=== PATIENT | female | born 1940 | race Caucasian/White ===

== ENCOUNTER 2021-08-25 06:49 | Emergency (ER) | payer MEDICARE, OTHER ==
[2021-08-25] MEDS ORDERED: Azithromycin 250 MG Tab PO ONE (07:29)
[2021-08-25] MEDS ORDERED: predniSONE 20 MG Tab PO ONE (07:29)
[2021-08-25 08:01] LABS: CORONAVIRUS COVID-19 NAA NEGATIVE (NEGATIVE)
--- NOTE | 2021-08-25 09:05 | EDM.PDOC ---
ED HPI GENERAL MEDICAL PROBLEM - General Chief Complaint: Respiratory Problem Stated Complaint: cough fever Time Seen by Provider: 08/25/21 07:22 Source of Information: Reports: Patient History Limitations: Reports: No Limitations - History of Present Illness Duration: Week(s): (2) Location: Reports: Generalized Quality: Reports: Ache Severity: Moderate Improves with: Reports: None Worsens with: Reports: None Associated Symptoms: Reports: Cough, Fever/Chills, Loss of Appetite, Malaise. Denies: cough w sputum, Nausea/Vomiting, Shortness of Breath - Related Data Allergies Allergy/AdvReac Type Severity Reaction Status Date / Time No Known Allergies Allergy Verified 08/25/21 07:14 Home Meds: Home Meds Azithromycin [Zithromax] 250 mg PO DAILY 4 Days #4 tablet 08/25/21 [Rx] predniSONE [Prednisone] 10 mg PO DAILY 5 Days #5 tablet 08/25/21 [Rx] ED ROS GENERAL - Review of Systems Review Of Systems: Comprehensive ROS is negative, except as noted in HPI. Constitutional: Reports: Fever, Chills, Malaise, Fatigue Respiratory: Reports: Cough. Denies: Sputum Cardiovascular: Denies: Chest Pain GI/Abdominal: Reports: Anorexia, Decreased Appetite. Denies: Abdominal Pain, Nausea, Vomiting : Reports: No Symptoms Musculoskeletal: Reports: Muscle Pain Skin: Reports: No Symptoms Neurological: Reports: No Symptoms Psychiatric: Reports: No Symptoms ED EXAM, GENERAL - Physical Exam Exam: See Below Exam Limited By: No Limitations General Appearance: Alert, No Apparent Distress Head: Atraumatic Neck: Normal Inspection, Supple Respiratory/Chest: No Respiratory Distress, Lungs Clear, Normal Breath Sounds Cardiovascular: Regular Rate, Rhythm, No Edema, No JVD GI/Abdominal: Normal Bowel Sounds, Non-Tender Back Exam: No: CVA Tenderness (L), CVA Tenderness (R) Extremities: Normal Inspection Neurological: Alert, Oriented Psychiatric: Normal Affect Skin Exam: Warm, Dry Course - Vital Signs Text/Narrative:: Patient is negative for Covid but positive for influenza A. For her cough I am starting her on Bactrim and given her some steroids. I will continue on both of these. She is Tylenol and ibuprofen increase fluids and rest. Return to ER if short of breath or having dyspnea on exertion or feeling worse. Last Recorded V/S: Last Vital Signs Temp 97.6 F 08/25/21 07:15 Pulse 96 08/25/21 07:15 Resp 19 08/25/21 07:15 BP 131/66 08/25/21 07:15 Pulse Ox 99 08/25/21 07:15 - Orders/Labs/Meds Labs: Laboratory Tests 08/25/21 Range/Units 07:21 Influenza Type A RNA Positive H (NEGATIVE) RSV RNA (INAAT) Negative (NEGATIVE) Influenza Type B RNA Negative (NEGATIVE) SARS-CoV-2 RNA (MICHAEL) Negative (NEGATIVE) Meds: Medications Discontinued Medications Generic Name Dose Route Start Last Admin Trade Name Shaylee PRN Reason Stop Dose Admin Azithromycin 500 mg 08/25/21 07:29 08/25/21 07:55 Azithromycin 250 Mg Tab PO 08/25/21 07:30 500 mg ONETIME ONE Administration Prednisone 40 mg 08/25/21 07:29 08/25/21 07:56 Prednisone 20 Mg Tab PO 08/25/21 07:30 40 mg ONETIME ONE Administration Departure - Departure Time of Disposition: 09:01 Disposition: Home, Self-Care 01 Condition: Good Clinical Impression: Influenza - Discharge Information Prescriptions: predniSONE [Prednisone] 10 mg PO DAILY 5 Days #5 tablet Azithromycin [Zithromax] 250 mg PO DAILY 4 Days #4 tablet Instructions: Influenza, Adult, [id number] Referrals: PCP,None [Primary Care Provider] - Additional Instructions: Return to ER if symptoms are worse or you are having dyspnea on exertion. Recommend you get an [id number] pulse oximeter available at any pharmacy to measure your oxygen level at home. If this is below 90 or you are more symptomatic return to emergency department. Sepsis Event Note (ED) - Evaluation Sepsis Screening Result: No Definite Risk - Focused Exam Vital Signs: Vital Signs Temp Pulse Resp BP Pulse Ox 08/25/21 07:15 97.6 F 96 19 131/66 99
== END 2021-08-25 09:45 | disposition home or self-care (01) ==
LOC: JD.ED 06:49
DX: J10.1 Influenza due to other identified influenza virus with other respiratory manifestations (principal); Z20.822 Contact with and (suspected) exposure to COVID-19
CPT/HCPCS: 0241U; 99284; A9270; J7512

== ENCOUNTER 2023-03-14 10:46 | Emergency (ER) | payer MEDICARE, OTHER | END 2023-03-14 11:45 | disposition home or self-care (01) | LOC: JD.ED 10:46 | DX: B02.9 Zoster without complications (principal) | CPT/HCPCS: 99282; 99283 ==